=== PATIENT | male | born 2000 | race Caucasian/White ===

== ENCOUNTER 2022-02-09 13:59 | Emergency (ER) | payer SELFPAY ==
[~2022-02-09] VITALS: Ht 157.5 cm; Wt 75.0 kg
[2022-02-09] MEDS ORDERED: POLY15DR31 EACHEYE (18:55)
[2022-02-09] MEDS ORDERED: P20 MT (18:55)
[2022-02-09] MEDS ORDERED: ACYC200C31 MT (18:55)
[2022-02-09] MEDS ORDERED: PREDNISONE 20MG TABLET PO ONE (19:00)
[2022-02-09] MEDS ORDERED: ACYCLOVIR 400 MG TABLET PO ONE (19:00)
[2022-02-09 20:47] VITALS: BP 114/73
== END 2022-02-09 20:50 | disposition home or self-care (01) ==
LOC: ER 13:59
DX: G51.0 Bell's palsy (principal)
CPT/HCPCS: 99281; J7512